=== PATIENT | female | born 1990 | race African-American/Black ===

== ENCOUNTER 2024-01-29 17:58 | Emergency (ER) | payer OTHER ==
[2024-01-29] VITALS (13 sets, daily range): BP systolic 131–155; BP diastolic 89–108
[~2024-01-29] VITALS: Ht 160 cm; Wt 58.9 kg
[2024-01-29] MEDS ORDERED: IBUPROFEN 800 MG/TAB PO ONE (18:10)
[2024-01-29] MEDS ORDERED: MOTRIN800 MG PO (19:46)
== END 2024-01-29 20:28 | disposition home or self-care (01) | DRG 563 ==
LOC: ED 17:58
DX: S92.502A Displaced unspecified fracture of left lesser toe(s), initial encounter for closed fracture (principal); I10 Essential (primary) hypertension; W22.09XA Striking against other stationary object, initial encounter